=== PATIENT | female | born 1950 | race Caucasian/White ===

== ENCOUNTER 2017-04-12 15:18 | Outpatient (CLI) | payer MEDICARE, OTHER ==
--- NOTE | 2017-04-13 15:26 | Mammography Report ---
DIGITAL SCREENING MAMMOGRAM: 04/12/2017 CLINICAL INDICATION: A 67-year-old nulliparous patient, for screening. COMPARISON: 03/2016, 12/2012, 12/2010, 11/2010, 08/2009, 06/2009, 06/2008, 05/2007. TECHNIQUE: Routine CC and MLO projections were obtained of the breasts. FINDINGS: Scattered fibroglandular tissue is present within the breasts. There are no dominant dejuan s, suspicious microcalcifications, or secondary signs of malignancy. In comparison to the previous st udies, there are no significant changes. ASSESSMENT: NO MAMMOGRAPHIC EVIDENCE OF MALIGNANCY. NO SIGNIFICANT INTERVAL CHANGES. RECOMMENDATION: Screening mammography is recommended annually. BIRADS category 1 - negative. STANDARD QUALIFYING STATEMENTS 1. This examination was reviewed with the aid of Computed-Aided Detection (CAD). 2. A negative or benign imaging report should not delay biopsy if clinically suspicious findings are present. Consider surgical consultation if warranted. More than 5% of cancers are not identified by i maging. 3. Dense breasts may obscure an underlying neoplasm. JOB #: [id number] EXT JOB #:[id number]
== END 2017-04-12 15:19 | disposition home or self-care (01) ==
LOC: DI 15:18
PROVIDERS: ATTEND Family Medicine
DX: Z12.31 Encounter for screening mammogram for malignant neoplasm of breast (principal)
CPT/HCPCS: 77067

== ENCOUNTER 2018-02-16 14:14 | Outpatient (CLI) | payer MEDICARE, OTHER ==
--- NOTE | 2018-02-16 17:43 | XRAY Report ---
LEFT KNEE, THREE VIEWS: 02/16/2018 FINDINGS: The patient has had a prior anterior cruciate ligament repair. No comparisons. There is chondrocalcinosis of the medial and lateral knee joint space with spurring bilaterally. No significant joint space narrowing. Minimal patellar articular surface spurring. Equivocal tiny suprapatellar effusion. No fracture, malalignment or soft tissue swelling. IMPRESSION: STATUS POST ANTERIOR CRUCIATE LIGAMENT REPAIR WITH MILD DEGENERATIVE CHANGES ABOUT THE LEFT KNEE. NO SUPERIMPOSED ACUTE FINDINGS. TD: 02/16/2018 16:17
== END 2018-02-16 14:15 | disposition home or self-care (01) ==
LOC: DI 14:14
PROVIDERS: ATTEND Nurse Practitioner Family
DX: M17.12 Unilateral primary osteoarthritis, left knee (principal); Z98.1 Arthrodesis status

== ENCOUNTER 2018-07-24 15:52 | Outpatient (CLI) | payer MEDICARE, OTHER ==
--- NOTE | 2018-07-25 13:14 | Mammography Report ---
Reason: SCREENING MAMMO Procedure Date: 07/24/2018 Accession Number: [id number] / [id number] Procedure: [facility]JNI - Screening Mammo w/Compa CPT Code: FULL RESULT: EXAM: Screening Mammo w/Compa DATE: 07/24/2018 5:04 PM CLINICAL HISTORY: Routine screening. No reported personal or family history of breast cancer. TECHNIQUE: Bilateral CC and MLO views were obtained. COMPARISON: 04/12/2017 through 12/08/2010 FINDINGS: The breasts demonstrate scattered fibroglandular densities bilaterally. There are no suspicious masses, calcifications or areas of distortion bilaterally. IMPRESSION: Negative examination RECOMMENDATION: Routine annual screening unless otherwise clinically indicated. BI-RADS CATEGORY 1: Negative STANDARD QUALIFYING STATEMENTS: 1. This examination was not reviewed with the aid of Computer-Aided Detection (CAD). 2. A negative or benign imaging report should not preclude biopsy if clinically suspicious findings are present. 3. Dense breasts may obscure an underlying neoplasm. 4. This examination was reviewed with the aid of 3D breast imaging (tomosynthesis).
== END 2018-07-24 15:53 | disposition home or self-care (01) ==
LOC: DI 15:52
PROVIDERS: ATTEND Family Medicine
DX: Z12.31 Encounter for screening mammogram for malignant neoplasm of breast (principal)
CPT/HCPCS: 77063; 77067

== ENCOUNTER 2019-06-21 15:18 | Outpatient (CLI) | payer MEDICARE, OTHER ==
--- NOTE | 2019-06-25 12:15 | DEXA Report ---
Reason: POSTMENOPAUSAL Procedure Date: 06/21/2019 Accession Number: [id number] / [id number] Procedure: DEX - Dexa Spine and/or Hip CPT Code: FULL RESULT: EXAM: Dexa Spine and/or Hip DATE: 06/21/2019 3:46 PM CLINICAL HISTORY: POSTMENOPAUSAL TECHNIQUE: Dual energy x-ray absorptiometry (DXA) was performed on a [employer] System. Regions measured are the AP Spine, femoral neck, and if needed forearm. COMPARISON: None. In accordance with the International Society for Clinical Densitometry (ISCD) guidelines, data from previous exams may be reanalyzed using current recommendations and techniques. This is done to allow a more accurate basis for comparison with the current study. FINDINGS: The data for the lumbar spine is as follows: BMD (g/cm/cm) T-SCORE Z-SCORE REGION L1 1.376 2.0 2.7 L2 1.442 2.0 2.7 L3 1.530 2.8 3.5 L4 1.509 2.6 3.3 TOTAL 1.470 2.4 3.1 NOTE: All evaluable vertebrae are used for classification The data for the hip is as follows: BMD (g/cm/cm) T-SCORE Z-SCORE REGION Neck 1.103 0.5 1.5 TOTAL 1.141 1.1 1.8 NOTE: The femoral neck or total proximal femur, whichever is lowest, is used for classification. IMPRESSION: THE WHO CLASSIFICATION BASED ON THE INTERNATIONAL REFERENCE STANDARD IS NORMAL. THE FRACTURE RISK IS NOT INCREASED. RECOMMENDATION: Patients with diagnosis of osteoporosis or osteopenia should have regular bone mineral density assessment. For those eligible for Medicare, routine testing is allowed once every 2 years. Testing frequency can be increased for patients who have rapidly progressing disease or for those who are receiving medical therapy to restore bone mass. COMMENT: World Health Organization (WHO) definitions for osteoporosis and osteopenia: NORMAL BMD: T-score at -1.0 or higher, fracture risk is low OSTEOPENIA BMD: T-score between -1.0 and -2.5, fracture risk is increased. OSTEOPOROSIS BMD: T-score at -2.5 or lower, fracture risk is high. National Osteoporosis Foundation recommends: 1. Obtain adequate dietary calcium (at least 1200 mg per day) and vitamin D (400-800 international units per day). 2. Participate, as appropriate, in regular weightbearing and muscle-strengthening exercise. 3. Avoid tobacco use and reduce alcohol and caffeine intake. 4. For more detailed information see the website at www.NOF.org.
== END 2019-06-21 15:19 | disposition home or self-care (01) ==
LOC: DI 15:18
PROVIDERS: ATTEND Family Medicine
DX: Z13.820 Encounter for screening for osteoporosis (principal); Z78.0 Asymptomatic menopausal state
CPT/HCPCS: 77080

== ENCOUNTER 2021-05-14 15:52 | Outpatient (CLI) | payer MEDICARE, OTHER ==
--- NOTE | 2021-05-14 16:43 | XRAY Report ---
PROCEDURE: Shoulder 3 View LT INDICATIONS: PAIN IN LEFT SHOULDER TECHNIQUE: 3 views of the shoulder were acquired. COMPARISON: None. FINDINGS: Bones: No fractures or dislocations. No suspicious bony lesions. Visualized ribs appear intact. H umeral head is high riding. Severe acromioclavicular and moderate glenohumeral narrowing. Soft tissues: No suspicious soft tissue calcifications. IMPRESSION: 1. Glenohumeral and acromioclavicular arthritic narrowing. 2. High riding humeral head which can be seen with rotator cuff pathology. Reviewed by: Adelia Morales MD on 05/14/2021 4:42 PM PDT Approved by: Adelia Morales MD on 05/14/2021 4:42 PM PDT Station ID: [id number]
== END 2021-05-14 15:53 | disposition home or self-care (01) ==
LOC: DI.S 15:52
PROVIDERS: ATTEND Family Medicine
DX: M19.012 Primary osteoarthritis, left shoulder (principal); R93.6 Abnormal findings on diagnostic imaging of limbs

== ENCOUNTER 2021-05-28 14:55 | Outpatient (CLI) | payer MEDICARE, OTHER ==
--- NOTE | 2021-05-28 16:41 | MRI Report ---
PROCEDURE: Shoulder LT W/O INDICATIONS: LEFT SHOULDER PAIN TECHNIQUE: Noncontrast oblique coronal T2 fast spin echo with fat saturation, oblique sagittal T1 spin echo and T2 fast spin echo with fat saturation, axial T1 spin echo and T2 fast spin echo with fat saturation t hrough the shoulder. COMPARISON: None. FINDINGS: Image quality: Excellent. Rotator cuff: Moderate T2 signal elevation throughout the supraspinatus and infraspinatus tendons at the humeral insertion sites, extending to the muscular tendinous junction, indicating tendinopathy. S uperimposed high-grade intrasubstance and articular surface tearing of the posterior supraspinatus te ndon at the humeral insertion site extending to the muscular tendinous junction, measuring roughly 10 mm anteroposterior. There is moderate grade partial-thickness intrasubstance tearing of the anterior infraspinous tendon at the at the muscular tendinous junction. Moderate grade intrasubstance tearing of the mid and posterior infraspinatus tendon at the muscular tendinous junction. Mild T2 signal brady vation within the subscapularis at the humeral insertion site extending to the muscular tendinous jennifer ction, indicating tendinopathy. Teres minor is intact. No rotator cuff atrophy. Bones and bursae: No bone marrow contusions or fractures. Moderate acromioclavicular joint degenerat ion. The acromion demonstrates conventional anatomy, without an os acromiale. No pathologic subacro mial/subdeltoid bursal fluid is present. Capsule and soft tissues: In the absence of intra-articular contrast, the labrum and glenohumeral li gaments appear intact. The long head of the biceps tendon demonstrates normal location and morpholog y. The rotator interval appears normal, without fibrosis. The coracohumeral ligament is normal in t hickness. IMPRESSION: 1. Supraspinatus and infraspinatus tendinopathy with superimposed partial thickness tears. 2. Subscapularis tendinopathy without tear. 3. Acromioclavicular joint osteoarthritis. Reviewed by: Francisco Bell MD on 05/28/2021 4:40 PM PDT Approved by: Francisco Bell MD on 05/28/2021 4:40 PM PDT Station ID: [id number]
== END 2021-05-28 14:56 | disposition home or self-care (01) ==
LOC: DI 14:55
PROVIDERS: ATTEND Family Medicine
DX: M75.112 Incomplete rotator cuff tear or rupture of left shoulder, not specified as traumatic (principal); M19.012 Primary osteoarthritis, left shoulder

== ENCOUNTER 2022-03-02 10:06 | Outpatient (CLI) | payer MEDICARE, OTHER ==
[2022-03-02 14:59] LABS: ALBUMIN 4.4 g/dL (3.2-5.5); ALBUMIN/GLOBULIN RATIO 1.6 (1.0-2.2); ALKALINE PHOSPHATASE 50 IU/L (42-121); ALT ALANINE AMINOTRANSFERASE 24 IU/L (10-60); AST ASPARTATE AMINOTRANSFERASE 25 IU/L (10-42); BUN - BLOOD UREA NITROGEN 22 mg/dL (6-20); CALCIUM 9.6 mg/dL (8.5-10.3); CARBON DIOXIDE - CO2 25 mmol/L (21-32); CHLORIDE 99 mmol/L (101-111); CHOL/HDL RATIO 3.2 (<4.4); CHOLESTEROL 217 mg/dL; CREATININE 0.9 mg/dL (0.4-1.0); GFR - MDRD 62 (>89); GLUCOSE 99 mg/dL (70-100); HDL CHOLESTEROL 67 mg/dL; LDL CHOLESTEROL,CALCULATED 112 mg/dL; LDL/HDL RATIO 1.7 (<4.4); SODIUM 135 mmol/L (135-145); TOTAL PROTEIN 7.2 g/dL (6.7-8.2); TRIGLYCERIDES 191 mg/dL; VLDL CHOLESTEROL 38 mg/dL
== END 2022-03-02 10:07 | disposition home or self-care (01) ==
LOC: LAB.S 10:06
PROVIDERS: ATTEND Family Medicine
DX: E78.5 Hyperlipidemia, unspecified (principal); I10 Essential (primary) hypertension
CPT/HCPCS: 36415; 80053; 80061; 83721

== ENCOUNTER 2023-08-25 10:17 | Outpatient (CLI) | payer MEDICARE, OTHER ==
[2023-08-25 15:22] LABS: BASOPHILS % (AUTO) 0.5 %; EOSINOPHILS # (AUTO) 0.2 10^3/uL (0.0-0.7); EOSINOPHILS % (AUTO) 2.4 %; HCT - HEMATOCRIT 43.4 % (37.0-47.0); HGB - HEMOGLOBIN 14.3 g/dL (12.0-16.0); LYMPHOCYTES # (AUTO) 2.1 10^3/uL (1.5-3.5); LYMPHOCYTES % (AUTO) 32.5 %; MEAN CORPUSCULAR HEMOGLOBIN 30.1 pg (27.0-31.0); MEAN CORPUSCULAR HGB CONC 32.9 g/dL (32.0-36.0); MEAN CORPUSCULAR VOLUME 91.4 fL (81.0-99.0); MEAN PLATELET VOLUME 11.2 fL (7.9-10.8); MONOCYTES # (AUTO) 0.5 10^3/uL (0.0-1.0); MONOCYTES % (AUTO) 7.2 %; NEUTROPHILS # (AUTO) 3.7 10^3/uL (1.5-6.6); NEUTROPHILS % (AUTO) 57.1 %; PLT - PLATELET COUNT 205 10^3/uL (130-450); RED BLOOD COUNT 4.75 10^6/uL (4.20-5.40); RED CELL DISTRIBUTION WIDTH 13.6 % (12.0-15.0); WHITE BLOOD COUNT 6.6 x10^3/uL (4.8-10.8)
[2023-08-25 15:31] LABS: ALBUMIN 4.4 g/dL (3.2-5.5); ALBUMIN/GLOBULIN RATIO 1.6 (1.0-2.2); ALKALINE PHOSPHATASE 49 IU/L (42-121); ALT ALANINE AMINOTRANSFERASE 16 IU/L (10-60); AST ASPARTATE AMINOTRANSFERASE 18 IU/L (10-42); BILIRUBIN,TOTAL 0.6 mg/dL (0.2-1.0); BUN - BLOOD UREA NITROGEN 30 mg/dL (6-20); CALCIUM 9.9 mg/dL (8.5-10.3); CARBON DIOXIDE - CO2 28 mmol/L (21-32); CHLORIDE 101 mmol/L (101-111); CHOL/HDL RATIO 2.6 (<4.4); CHOLESTEROL 209 mg/dL; GFR - MDRD 55 (>89); GLUCOSE 80 mg/dL (74-104); HDL CHOLESTEROL 81 mg/dL; LDL CHOLESTEROL,CALCULATED 109 mg/dL; LDL/HDL RATIO 1.3 (<4.4); POTASSIUM 3.9 mmol/L (3.5-4.5); SODIUM 135 mmol/L (135-145); TOTAL PROTEIN 7.2 g/dL (6.4-8.9); TRIGLYCERIDES 94 mg/dL (48-352); VLDL CHOLESTEROL 19 mg/dL
[2023-08-26 06:47] LABS: ESTIMATED AVERAGE GLUCOSE 105 mg/dL (70-100); HEMOGLOBIN A1c% 5.3 % (4.27-6.07)
== END 2023-08-25 10:18 | disposition home or self-care (01) ==
LOC: LAB.S 10:17
PROVIDERS: ATTEND Internal Medicine
DX: E78.2 Mixed hyperlipidemia (principal); I10 Essential (primary) hypertension
CPT/HCPCS: 36415; 80053; 80061; 83036; 83721; 85025

== ENCOUNTER 2024-05-11 09:33 | Outpatient (CLI) | payer MEDICARE, OTHER ==
[2024-05-11 15:24] LABS: BASOPHILS % (AUTO) 0.6 %; EOSINOPHILS # (AUTO) 0.2 10^3/uL (0.0-0.7); EOSINOPHILS % (AUTO) 2.6 %; HCT - HEMATOCRIT 42.2 % (37.0-47.0); HGB - HEMOGLOBIN 13.7 g/dL (12.0-16.0); LYMPHOCYTES # (AUTO) 2.4 10^3/uL (1.5-3.5); LYMPHOCYTES % (AUTO) 34.8 %; MEAN CORPUSCULAR HEMOGLOBIN 27.8 pg (27.0-31.0); MEAN CORPUSCULAR HGB CONC 32.5 g/dL (32.0-36.0); MEAN CORPUSCULAR VOLUME 85.8 fL (81.0-99.0); MEAN PLATELET VOLUME 11.2 fL (7.9-10.8); MONOCYTES # (AUTO) 0.4 10^3/uL (0.0-1.0); MONOCYTES % (AUTO) 6.4 %; NEUTROPHILS # (AUTO) 3.8 10^3/uL (1.5-6.6); NEUTROPHILS % (AUTO) 55.5 %; PLT - PLATELET COUNT 231 10^3/uL (130-450); RED BLOOD COUNT 4.92 10^6/uL (4.20-5.40); RED CELL DISTRIBUTION WIDTH 14.9 % (12.0-15.0); WHITE BLOOD COUNT 6.8 x10^3/uL (4.8-10.8)
[2024-05-11 15:31] LABS: PARTIAL THROMBOPLASTIN TIME 27.2 secs (24.9-33.3)
[2024-05-11 15:36] LABS: PT - PROTHROMBIN TIME 11.2 secs (9.9-12.6)
[2024-05-11 16:03] LABS: CHOL/HDL RATIO 2.7 (<4.4); CHOLESTEROL 186 mg/dL; HDL CHOLESTEROL 69 mg/dL; LDL CHOLESTEROL,CALCULATED 87 mg/dL; LDL/HDL RATIO 1.3 (<4.4); TRIGLYCERIDES 150 mg/dL; VLDL CHOLESTEROL 30 mg/dL
[2024-05-11 16:10] LABS: ALBUMIN 4.2 g/dL (3.2-5.5); ALBUMIN/GLOBULIN RATIO 1.6 (1.0-2.2); ALKALINE PHOSPHATASE 56 IU/L (42-121); ALT ALANINE AMINOTRANSFERASE 21 IU/L (10-60); AST ASPARTATE AMINOTRANSFERASE 22 IU/L (10-42); BILIRUBIN,TOTAL 0.6 mg/dL (0.2-1.0); BUN - BLOOD UREA NITROGEN 26 mg/dL (6-20); CALCIUM 10.1 mg/dL (8.5-10.3); CARBON DIOXIDE - CO2 23 mmol/L (21-32); CHLORIDE 106 mmol/L (101-111); CREATININE 0.9 mg/dL (0.6-1.3); GFR - MDRD 61 (>89); GLUCOSE 87 mg/dL (74-104); POTASSIUM 4.2 mmol/L (3.5-4.5); SODIUM 138 mmol/L (135-145); TOTAL PROTEIN 6.8 g/dL (6.4-8.9)
[2024-05-11 21:22] LABS: ESTIMATED AVERAGE GLUCOSE 103 mg/dL (70-100); HEMOGLOBIN A1c% 5.2 % (4.27-6.07)
== END 2024-05-11 09:34 | disposition home or self-care (01) ==
LOC: LAB.S 09:33
PROVIDERS: ATTEND Internal Medicine
DX: Z01.812 Encounter for preprocedural laboratory examination (principal); R55 Syncope and collapse
CPT/HCPCS: 36415; 80053; 80061; 82985; 83036; 83721; 85025; 85610; 85730

== ENCOUNTER 2024-05-12 15:01 | Outpatient (CLI) | payer MEDICARE, OTHER | END 2024-05-12 15:02 | disposition home or self-care (01) | LOC: DI 15:01 | PROVIDERS: ATTEND Internal Medicine | DX: R55 Syncope and collapse (principal) | CPT/HCPCS: 93307 ==

== ENCOUNTER 2024-05-24 16:09 | Outpatient (CLI) | payer MEDICARE, OTHER ==
--- NOTE | 2024-05-25 15:24 | Ultrasound Report ---
PROCEDURE: Carotid Doppler Complete INDICATIONS: SYNCOPE TECHNIQUE: Color and pulse Doppler interrogation was performed of both carotid systems, with image documentation and velocity measurements. COMPARISON: None. FINDINGS: Right side: Brachial blood pressure: 107 mm Hg. Common carotid artery peak systolic velocity: 73.2 cm/sec. Internal carotid artery peak systolic velocity: 114.9 cm/sec. Internal carotid artery end diastolic velocity: 24.7 cm/sec. External carotid artery peak systolic velocity: 109.3 cm/sec. ICA/CCA peak systolic ratio: 1.6 . Castro scale imaging description: Moderate atherosclerotic plaque. Percent internal carotid artery stenosis: Less than 50 percent stenosis. Vertebral artery: Flow direction is antegrade. Left side: Brachial blood pressure: 130 mm Hg. Common carotid artery peak systolic velocity: 72.5 cm/sec. Internal carotid artery peak systolic velocity: 67.1 cm/sec. Internal carotid artery end diastolic velocity: 20.2 cm/sec. External carotid artery peak systolic velocity: 92.3 cm/sec. ICA/CCA peak systolic ratio: 0.9 . Castro scale imaging description: Moderate atherosclerotic plaque. Percent internal carotid artery stenosis: Less than 50 percent stenosis. Vertebral artery: Left vertebral artery is not well seen secondary to atherosclerotic plaque. IMPRESSION: 1. In the right internal carotid artery, there is less than 50 percent stenosis based on peak systoli c velocity criteria. 2. In the left internal carotid artery, there is less than 50 percent stenosis based on peak systolic velocity criteria. 3. Antegrade blood flow within the right vertebral artery. 4. Greater than 10 mmHg difference in the bilateral upper extremity brachial pressures. Findings are nonspecific and may be seen in the setting of a hemodynamically significant subclavian artery stenosi s. Left vertebral artery is not well seen. If clinically warranted, a CTA of the chest can be perform ed for further evaluation. The estimate of stenosis included in the report of the imaging study was calculated using the [facility]-end orsed standards of carotid artery stenosis. Reviewed by: Jeffery Tello MD on 05/25/2024 3:23 PM PDT Approved by: Jeffery Tello MD on 05/25/2024 3:23 PM PDT Station ID: [id number]
== END 2024-05-24 16:10 | disposition home or self-care (01) ==
LOC: DI 16:09
PROVIDERS: ATTEND Internal Medicine
DX: I65.23 Occlusion and stenosis of bilateral carotid arteries (principal)
CPT/HCPCS: 93880